=== PATIENT | female | born 1965 | race Caucasian/White ===

== ENCOUNTER 2016-12-12 17:02 | Emergency (ER) | payer BC ==
--- NOTE | ~2016-12-12 | CT4 ---
[facility] A Service of [facility] / [facility] RADIOLOGY TEXT RESULTS PATIENT: BRITNEY SOTOMAYOR LOCATION: SED : 63 UNIT #: [id number] AGE: [address]: Jayy Oleary MD SEX: F ORDER DR: [id number] [place] [id number] E MR#: [id number] Acc #: [id number] NAME: BRITNEY SOTOMAYOR. : 1965 SEX: F STUDY DATE/TIME: 12/12/2016 18:29 UNIT: SED ROOM: STUDY DESCRIPTION: CT Abd and Pelv Wo Cont Attending Physician: Jayy Oleary M.D. Ordering Physician: Jayy Oleary M.D. Primary Care Physician: Trenton Lagunas M.D. MEDICAL IMAGING REPORT This report is preliminary unless electronic signature is present. EXAM CT abdomen and pelvis without contrast HISTORY Left lower quadrant pain today. FINDINGS CT abdomen and pelvis was performed without contrast. This CT exam was performed with one or more of the following radiation dose reduction techniques: automatic exposure control, adjustment of mA and/or kV according to patient size, and iterative reconstruction. CT ABDOMEN: Minimal atelectasis or scarring in the posterior lung bases bilaterally. The liver, gallbladder, spleen, pancreas, left kidney, and adrenal glands are normal. There is a 3 mm nonobstructing stone in the lower pole of the right kidney. No hydronephrosis. No bowel dilatation. CT PELVIS: No pelvic mass or fluid collection or inflammatory stranding. The uterus and adnexa are unremarkable. Normal appendix. Urinary bladder is normal. IMPRESSION 1. No acute findings in the abdomen or pelvis. 2. 3 mm nonobstructing stone in the lower pole of the right kidney. Dictated by... Baldemar Espinosa M.D. THIS IS AN ELECTRONICALLY VERIFIED REPORT Baldemar Espinosa M.D. at 12/13/2016 1:27 PM DFL/aa [facility] A Service of [facility] / [facility] RADIOLOGY TEXT RESULTS PATIENT: BRITNEY S[facility]AYOR [id number] 63 UNIT #: [id number] AGE: [address]: Jayy Oleary MD SEX: F ORDER DR: TD: 12/13/2016 06:59 JOB #: [id number] MEDICAL IMAGING REPORT Page 1 of 1
[2016-12-12 18:10] LABS: BASOPHIL# 0.1 X10e3 (0-0.3); DIFF IND NO; EOSINOPHIL# 0.1 X10e3 (0-0.7); EOSINOPHIL% 0.9 % (0.0-7.0); HEMATOCRIT 43.7 % (35.0-45.0); HEMOGLOBIN 15.2 gm/dL (12.0-16.0); LYMPHOCYTE# 3.9 X10e3 (1.0-3.5); LYMPHOCYTE% 41.9 % (17.0-45.0); MEAN CELL VOLUME 91.5 FL (83-96); MEAN CORPUSCULAR HEMOGLOBIN 31.8 PG (28-34); MEAN CORPUSCULAR HGB CONC 34.8 g/dL (30-36); MONOCYTE# 0.4 X10e3 (0-1.0); MONOCYTE% 4.7 % (3.0-12.0); NEUTROPHIL# 4.8 X10e3 (1.5-7.1); NEUTROPHIL% 51.5 % (40-75); PLATELET COUNT 258 X10e3 (140-420); RED BLOOD COUNT 4.78 X10e (3.90-5.30); RED CELL DISTRIBUTION WIDTH 12.5 % (11.0-15.5); WHITE BLOOD COUNT 9.4 X10e3 (4.0-10.5)
[2016-12-12 18:13] LABS: URINE APPEARANCE SL CLOUDY; URINE BILIRUBIN NEG (NEG); URINE BLOOD NEG (NEG); URINE COLOR YELLOW; URINE GLUCOSE NEG (NORM); URINE KETONE NEG (NEG); URINE LEUKOCYTE ESTERASE 1+ (NEG); URINE NITRATE POS (NEG); URINE PH 6.5 (5-8); URINE PROTEIN NEG (NEG); URINE SOURCE CLEAN CATCH; URINE UROBILINOGEN 0.2 MG/DL (NORM)
[2016-12-12 18:17] LABS: MICRO INDICATED? YES
[2016-12-12 18:19] LABS: CULTURE INDICATED? YES; URINE BACTERIA 2+ (NEG); URINE RBC NEG /[HPF] (0-2); URINE SQUAMOUS EPITHELIAL CELL OCCAS /[HPF]
[2016-12-12 18:22] LABS: ALBUMIN SERUM 4.3 g/dL (3.5-5.0); BILIRUBIN, DIRECT 0.1 mg/dL (0.0-0.2); BILIRUBIN,INDIRECT 0.6 mg/dL (0.0-0.9); BILIRUBIN,TOTAL 0.7 mg/dL (0.2-2.0); BUN/CREATININE RATIO 18.57; CALCIUM SERUM 8.8 mg/dL (8.4-10.2); CREATININE SERUM 0.7 mg/dL (0.6-1.4); GLOM FILT RATE Estimated 99.6 mL/min (>60); POTASSIUM 3.9 mmol/L (3.5-5.1)
== END 2016-12-12 20:00 | disposition home or self-care (01) ==
LOC: SED 17:02
PROVIDERS: Emergency Medicine
DX: N10 Acute pyelonephritis (principal); Z87.442 Personal history of urinary calculi; F17.210 Nicotine dependence, cigarettes, uncomplicated
CPT/HCPCS: 36415; 74176; 80048; 80076; 81003; 82150; 83690; 84703; 85025; 87086; 87088; 87186; 96365; 96375; 99284; J1956; J2270; J2405